=== PATIENT | male | born 1965 | race Two or more races ===

== ENCOUNTER 2016-07-05 19:46 | Emergency (ER) | payer OTHER ==
[2016-07-05] MEDS ORDERED: IOPAMIDOL 370 (76%) 100 ML VIAL IV ONE (19:47)
[2016-07-05] MEDS ORDERED: LACTATED RINGERS 1,000 ML ONE (20:21)
[2016-07-05] MEDS ORDERED: DEXAMETHASONE SOD PHOS 10 MG/1 ML VIAL ONE (20:21)
[2016-07-05] MEDS ORDERED: CLINDAMYCIN 900 MG PREMIX 50 ML IV ONE (20:21)
[2016-07-05 20:25] LABS: ABSOLUTE NEUTROPHIL COUNT 6.9 K/mm3 (1.8-7.7); BASO % 0.1 % (0.2-1.0); EOS # 0.1 (0.0-0.5); EOS % 0.9 % (0.9-2.9); HEMATOCRIT 40.5 % (32.0-52.0); HEMOGLOBIN 13.8 gm/l (14.0-18.0); IMM NEUT% 0.3 % (0-1); LYMPH # 1.4 (1.0-4.8); LYMPH % 15.1 % (15-45); MEAN CELL VOLUME 83.5 fl (80.0-94.0); MEAN CORPUSCULAR HEMOGLOBIN 28.5 pg (27.0-31.0); MEAN CORPUSCULAR HGB CONC 34.1 g/dl (33.0-37.0); MEAN PLATELET VOLUME 10.1 fl (7.4-10.4); MONO % 10.4 % (4-12); NEUT % 73.2 % (43-75); PLATELET COUNT 320 K/mm3 (130-400); RED CELL DISTRIBUTION WIDTH 12.3 % (11.5-14.5)
[2016-07-05] MEDS ORDERED: ONDANSETRON 4 MG ODT TAB ONE (20:57)
[2016-07-05] MEDS ORDERED: ONDANSETRON 4 MG/2ML 2 ML VIAL ONE (20:58)
--- NOTE | 2016-07-06 07:55 | CT ---
NECK SOFT TISSUE W/ CON: 07/05/2016 9:10 PM CLINICAL INDICATION: Throat pain since last . Patient is on antibiotics after seeing physician on Wednesday. Cannot tolerate food or water due to pain. COMPARISON: None. (MR) Sequences Performed: None (CT) Scan Technique: Contiguous axial 3 mm images from the AP window through the orbital meatal line are obtained after the uneventful IV ministration of contrast. Sagittal and coronal reformations are also obtained this time. Contrast: 80 ml of Isovue-370 contrast administered. FINDINGS: Orbits/Paranasal Sinuses/Skull Base: Opacification of multiple ethmoid air cells is present. Air-fluid levels are seen within the maxillary sinuses bilaterally with mucosal thickening on the right. There may be some mild mucosal thickening within the frontal sinuses bilaterally. Air-fluid levels are present within the sphenoid sinus bilaterally. Orbits and visualized brain are otherwise normal. Nasopharynx: Normal Suprahyoid Neck: Hypodense collection is identified involving the right tonsillar pillar. Streak artifact from dental amalgam does limit assessment at this level. There may be a slight rim of enhancement to this fluid. This measures approximately 1.5 x 1.1 x 2 cm in AP, transverse and craniocaudal extent. Enlargement of the tonsil is present with some mass effect upon the tracheal air column. Inflammatory change is noted within the right peritonsillar region. Remainder of the oropharynx is normal. Infrahyoid Neck: Apposition of the vocal cords is noted which may relate to formation during image acquisition or breath-hold. Otherwise normal. Thyroid: Normal Thoracic Inlet: The main pulmonary artery measures upwards 2.9 cm on axial image 96. Correlation with pulmonary hypertension would be recommended. Coronary artery calcifications are present. Remainder of the lung apices are normal. Lymph Nodes: Single enlarged retromandibular node is present on the right measuring 1.4 x 1 cm on axial image 45. Vascular Structures: Normal Other Findings: No fracture or dislocation is noted of the cervical spine. Sagittal alignment is intact. No significant degenerative changes are noted. IMPRESSION: Hypodense collection is noted within the right tonsil, with perhaps a slight rim of enhancement. Streak artifact from dental amalgam does limit assessment. Findings are worrisome for abscess versus phlegmon. ET consult would be recommended for further assessment treatment. Infiltrate change within the right oropharynx is present compatible with tonsillitis/pharyngitis. Mild mass effect upon the tracheal air column is present. Multifocal sinus disease. The main pulmonary artery measures 2.9 cm, worrisome for possible pulmonary arterial hypertension. Correlation is recommended. Incidental findings as above. Preliminary report was provided by Gilma at approximately 2208 hours on 07/05/2016.
== END 2016-07-05 22:47 | disposition home or self-care (01) ==
LOC: ED 19:46
DX: J36 Peritonsillar abscess (principal)
CPT/HCPCS: 85025; 87070; 80048; 70491; 96375; 99284 ×2; 96361; 96365; J1100; J2405; J7120; Q9967